=== PATIENT | female | born 2000 | race Caucasian/White ===

== ENCOUNTER 2020-09-02 02:30 | Emergency (ER) | payer BC ==
[~2020-09-02] VITALS: Ht 167.6 cm; Wt 83.9 kg
[2020-09-02 02:37] VITALS: Ht 167.6 cm; Wt 83.9 kg
[2020-09-02 03:20] LABS: BASOPHIL % 0.3 % (0-2); PLATELET COUNT 351 x10^3mcL (130-400); RED CELL DISTRIBUTION WIDTH 13.3 % (11.5-14.5)
[2020-09-02 03:46] LABS: CARBON DIOXIDE 24.8 mmol/L (21-32); CHLORIDE SERUM 103 mmol/L (98-107); CREATININE SERUM 0.8 mg/dL (0.6-1.0); GFR1 > 60 mL/min; GLUCOSE SERUM 112 mg/dL (74-106); POTASSIUM SERUM 3.6 mmol/L (3.5-5.1); SODIUM SERUM 140 mmol/L (136-145)
[2020-09-02 04:00] LABS: FREE T4 0.97 ng/dL (0.76-1.46)
[2020-09-02 04:16] VITALS: BP 126/63
== END 2020-09-02 04:17 | disposition home or self-care (01) ==
LOC: ED 02:30
PROVIDERS: Emergency Medicine
DX: F41.9 Anxiety disorder, unspecified (principal); J45.909 Unspecified asthma, uncomplicated
CPT/HCPCS: 84439